=== PATIENT | female | born 1940 ===

== ENCOUNTER 2016-10-07 11:11 | Observation (INO) | payer MEDICARE, OTHER ==
[2016-10-07] MEDS ORDERED: TRAMADOL HYDROCHLORIDE 50 MG TAB PO ONE (13:54)
[2016-10-07] MEDS ORDERED: TRAMADOL HYDROCHLORIDE 50 MG TAB ONE (13:55)
[2016-10-07 14:14] LABS: ALBUMIN 2.7 gm/dl (3.4-5.0); CALCIUM 8.3 mg/dl (8.5-10.1)
[2016-10-07 14:32] LABS: POTASSIUM 6.1 mMol/L (3.5-5.1)
[2016-10-07] MEDS ORDERED: FUROSEMIDE 20mg SOL IV ONE (15:20)
[2016-10-07 16:17] LABS: PLEURAL FLUID PH 8.5
[2016-10-07] MEDS ORDERED: NOVOLOG FLEXPEN SC PRN (17:38)
[2016-10-07] MEDS ORDERED: TRAMADOL HYDROCHLORIDE 50 MG TAB PO PRN (17:38)
[2016-10-07] MEDS ORDERED: CYANOCOBALAMIN 1000 MCG/ML SOL IM SCH (17:45)
[2016-10-07] MEDS: SODIUM CHLORIDE 0.9% FLUSH 10 ML SOL IV SCH (21:54)
[2016-10-07] MEDS: CARBIDOPA/LEVODOPA 25/100 TAB PO SCH (21:56)
[2016-10-07] MEDS: NOVOLOG FLEXPEN SC SCH (22:08)
[2016-10-08 01:04] VITALS: RESP 20
[2016-10-08] MEDS: SODIUM CHLORIDE 0.9% FLUSH 10 ML SOL IV SCH ×2 (05:46→09:10)
[2016-10-08 07:09] VITALS: BP 147/80; PULSE 95; TEMP 97.5; O2SAT 95
[2016-10-08 07:46] LABS: BASOPHILS % (AUTO) 1 % (0-3); EOSINOPHILS % (AUTO) 4 % (0-9); HEMATOCRIT 29 % (35-47); MEAN CORPUSCULAR VOLUME 86 fL (81-99); MONOCYTES % (AUTO) 10.8 % (0-12); NEUTROPHILS % (AUTO) 73.4 % (37-80)
[2016-10-08 07:59] LABS: CALCIUM 8.1 mg/dl (8.5-10.1); POTASSIUM 5.1 mMol/L (3.5-5.1)
[2016-10-08] MEDS: NOVOLOG FLEXPEN SC SCH (08:37)
[2016-10-08] MEDS ORDERED: ATORVASTATIN 10 MG TAB PO SCH ×3 (09:00→21:00)
[2016-10-08] MEDS ORDERED: METOPROLOL SUCCINATE 50 MG ER TAB PO SCH ×2 (09:00→21:00)
[2016-10-08] MEDS ORDERED: AMLODIPINE 5 MG TAB PO SCH (09:00)
[2016-10-08] MEDS ORDERED: CRANBERRY FRUIT EXTRACT PO SCH (09:00)
[2016-10-08] MEDS ORDERED: MAGNESIUM OXIDE 400 MG TAB PO SCH (09:00)
[2016-10-08] MEDS ORDERED: DILTIAZEM HCL 240 MG PO SCH (09:00)
[2016-10-08] MEDS ORDERED: MULTIVITAMIN2 1 EA TAB PO SCH (09:00)
[2016-10-08] MEDS ORDERED: ASPIRIN 81 MG CHEWABLE CTB PO SCH (09:00)
[2016-10-08] MEDS ORDERED: CHOLECALCIFEROL 1,000 IU TAB PO SCH (09:00)
[2016-10-08] MEDS ORDERED: CALCITRIOL 0.25 MCG SGL PO SCH (09:00)
[2016-10-08] MEDS ORDERED: INSULIN GLARGINE, RECOMBINAN 100 U/ML SOL SC SCH (09:00)
[2016-10-08] MEDS ORDERED: CHOLECALCIFEROL 1000 UNIT PO SCH (09:00)
[2016-10-08] MEDS ORDERED: CALCIUM CARBONATE 500 MG TAB PO SCH (09:00)
[2016-10-08] MEDS ORDERED: MAGNESIUM OXIDE 250 MG PO SCH (09:00)
[2016-10-08] MEDS ORDERED: SUCRALFATE 1 GM TAB PO SCH (09:00)
[2016-10-08] MEDS ORDERED: FUROSEMIDE 40 MG TAB PO SCH (09:00)
[2016-10-08] MEDS ORDERED: DILTIAZEM ER 120 MG C24 PO SCH (09:00)
[2016-10-08] MEDS: CARBIDOPA/LEVODOPA 25/100 TAB PO SCH (09:09)
[2016-10-08] MEDS ORDERED: FUROSEMIDE 20 MG TAB PO SCH (21:00)
[2016-10-09] MEDS ORDERED: LISINOPRIL 20 MG TAB PO SCH (09:00)
== END 2016-10-08 11:30 | disposition home or self-care (01) | DRG 641 ==
LOC: ACUTEOP 11:11 → ACUTE CARE 15:55
PROVIDERS: ADMIT Family Medicine; ATTEND Family Medicine
DX: E87.5 Hyperkalemia (principal); J90 Pleural effusion, not elsewhere classified; G20 Parkinson's disease; I50.9 Heart failure, unspecified; I11.0 Hypertensive heart disease with heart failure; Z98.890 Other specified postprocedural states; N18.9 Chronic kidney disease, unspecified; E11.9 Type 2 diabetes mellitus without complications; I48.0 Paroxysmal atrial fibrillation; Z79.4 Long term (current) use of insulin
CPT/HCPCS: 36415; 71010; 71250; 80048; 80053; 81003; 82150; 82465; 82945; 82962; 84132; 84157; 85025; 87070; 87205; 89051; 93005; 93012; 99211; J1817; J1940; J1815

== ENCOUNTER 2017-06-09 12:38 | Outpatient (CLI) | payer MEDICARE, OTHER ==
[2016-10-12 13:55] VITALS: O2SAT 99
== END 2017-06-09 12:39 | disposition home or self-care (01) | DRG 556 ==
LOC: CONVCARE 12:38
PROVIDERS: ATTEND Orthopaedic Surgery
DX: M25.511 Pain in right shoulder (principal)
CPT/HCPCS: 73030

== ENCOUNTER 2018-01-18 19:25 | Emergency (ER) | payer MEDICARE, OTHER ==
[2018-01-18 20:30] VITALS: TEMP 96.6
[2018-01-18] MEDS: LORAZEPAM 0.5 MG TAB PO ONE (20:35)
[2018-01-18] MEDS ORDERED: LORAZEPAM 0.5 MG TAB ONE (20:37)
[2018-01-18] MEDS: CLONIDINE 0.1 MG TAB PO ONE (20:45)
[2018-01-18] MEDS ORDERED: CLONIDINE 0.1 MG TAB ONE (20:47)
[2018-01-18 20:49] VITALS: RESP 16
[2018-01-18 21:44] VITALS: BP 153/76; PULSE 72; O2SAT 98
== END 2018-01-18 21:53 | disposition home or self-care (01) | DRG 881 ==
LOC: ED 19:25
DX: F32.9 Major depressive disorder, single episode, unspecified (principal)
CPT/HCPCS: 99283; A9270-GY

== ENCOUNTER 2018-04-30 06:20 | Emergency (ER) | payer MEDICARE, OTHER ==
[2018-04-30 06:59] LABS: BASOPHILS % (AUTO) 1 % (0-3); EOSINOPHILS % (AUTO) 7 % (0-9); HEMATOCRIT 36 % (35-47); HEMOGLOBIN 11.8 gm/dl (12.0-15.5); LYMPHOCYTES % (AUTO) 17.2 % (10-50); MEAN CORPUSCULAR HEMOGLOBIN 29.4 pg (27.0-32.0); MEAN CORPUSCULAR HGB CONC 32.3 gm/dl (32.0-36.0); MEAN CORPUSCULAR VOLUME 91 fL (81-99); MONOCYTES % (AUTO) 11.6 % (0-12); NEUTROPHILS % (AUTO) 63.4 % (37-80)
[2018-04-30 07:22] LABS: ALBUMIN 3.2 gm/dl (3.4-5.0); BILIRUBIN,TOTAL 0.5 mg/dl (0.2-1.0); CALCIUM 8.4 mg/dl (8.5-10.1); CARBON DIOXIDE 28.8 mEq/L (21-32); CREATININE 3.69 mg/dl (0.60-1.00); MAGNESIUM 1.5 mg/dl (1.8-2.4); POTASSIUM 3.9 mMol/L (3.5-5.1); TOTAL PROTEIN 6.3 gm/dl (6.4-8.2)
[2018-04-30] MEDS ORDERED: SODIUM CHLORIDE 0.9% FLUSH 10 ML SOL IV PRN (07:30)
[2018-04-30 08:45] VITALS: BP 167/96; TEMP 97; O2SAT 98
[2018-04-30 08:46] VITALS: PULSE 93; RESP 16
== END 2018-04-30 08:09 | disposition home or self-care (01) | DRG 310 ==
LOC: ED 06:20
DX: I48.0 Paroxysmal atrial fibrillation (principal); I44.39 Other atrioventricular block; E11.9 Type 2 diabetes mellitus without complications; Z79.4 Long term (current) use of insulin; D51.9 Vitamin B12 deficiency anemia, unspecified
CPT/HCPCS: 36415; 80053; 83735; 84484; 85025; 93005; 99283; 99285

== ENCOUNTER 2018-05-15 08:20 | Day surgery (SDC) | payer MEDICARE, OTHER ==
[2018-05-15] MEDS ORDERED: TRIAMCINOLONE ACETONIDE 40 MG/ML SUS ONE (09:01)
[2018-05-15] MEDS ORDERED: BUPIVACAINE HCL 0.25% MPF 30 ML SOL INFIL ONE (09:02)
[2018-05-15 09:30] VITALS: RESP 20; TEMP 97.4
[2018-05-15 09:42] VITALS: BP 161/79; PULSE 74; O2SAT 97
== END 2018-05-15 09:48 | disposition home or self-care (01) | DRG 552 ==
LOC: SURG 08:20
PROVIDERS: ATTEND Nurse Anesthetist, Certified Registered
DX: M48.062 Spinal stenosis, lumbar region with neurogenic claudication (principal); E11.9 Type 2 diabetes mellitus without complications
CPT/HCPCS: J3300

== ENCOUNTER 2018-05-16 10:54 | Emergency (ER) | payer MEDICARE, OTHER ==
[2018-05-16 11:10] VITALS: RESP 16; TEMP 98.4
[2018-05-16 11:50] VITALS: BP 205/100; PULSE 80; O2SAT 99
== END 2018-05-16 11:58 | disposition home or self-care (01) | DRG 316 ==
LOC: ED 10:54
DX: T82.838A Hemorrhage due to vascular prosthetic devices, implants and grafts, initial encounter (principal)
CPT/HCPCS: 99282; A6402; A6446

== ENCOUNTER 2018-06-26 12:36 | Day surgery (SDC) | payer MEDICARE, OTHER ==
[2018-06-26] MEDS ORDERED: BUPIVACAINE HCL 0.25% MPF 30 ML SOL INFIL ONE (13:22)
[2018-06-26] MEDS ORDERED: DEXAMETHASONE SOD PHOS PF 10 MG/ML SOL IJ ONE (13:22)
[2018-06-26 14:07] VITALS: BP 165/84; PULSE 94; RESP 20; TEMP 98; O2SAT 98
== END 2018-06-26 14:24 | disposition home or self-care (01) | DRG 552 ==
LOC: SURG 12:36
PROVIDERS: ATTEND Nurse Anesthetist, Certified Registered
DX: M48.062 Spinal stenosis, lumbar region with neurogenic claudication (principal); E11.9 Type 2 diabetes mellitus without complications
CPT/HCPCS: J1100

== ENCOUNTER 2019-02-26 09:18 | Day surgery (SDC) | payer MEDICARE, OTHER ==
[2019-02-26] MEDS ORDERED: BUPIVACAINE HCL 0.25% MPF 30 ML SOL INFIL ONE (09:52)
[2019-02-26] MEDS: DEXAMETHASONE SOD PHOS PF 10 MG/ML SOL IJ ONE ×4 (09:58→10:21)
[2019-02-26 10:39] VITALS: RESP 20; TEMP 97.4; O2SAT 98
[2019-02-26 11:04] VITALS: BP 166/69; PULSE 62
== END 2019-02-26 11:01 | disposition home or self-care (01) | DRG 552 ==
LOC: SURG 09:18
PROVIDERS: ATTEND Nurse Anesthetist, Certified Registered
DX: M48.062 Spinal stenosis, lumbar region with neurogenic claudication (principal); E11.9 Type 2 diabetes mellitus without complications
CPT/HCPCS: J1100

== ENCOUNTER 2019-03-24 09:17 | Emergency (ER) | payer MEDICARE, OTHER | END 2019-03-24 12:58 | disposition home or self-care (01) | LOC: ED 09:17 ==